=== PATIENT | male | born 1990 | race Caucasian/White ===

== ENCOUNTER 2016-11-30 20:15 | Emergency (ER) | payer BC ==
[~2016-11-30] VITALS: Ht 182.9 cm; Wt 77.3 kg
[2016-11-30] MEDS ORDERED: TOUJEO SOL300 UNIT/1 SC (21:19)
[2016-11-30] MEDS ORDERED: NOVOLOG PE100 UNITS/ SC (21:19)
[2016-11-30] MEDS ORDERED: ULTRAM50 MG PO (21:20)
[2016-11-30 22:24] VITALS: BP 112/64
== END 2016-11-30 22:24 | disposition home or self-care (01) ==
LOC: EME 20:15
DX: E10.40 Type 1 diabetes mellitus with diabetic neuropathy, unspecified (principal); Z91.048 Other nonmedicinal substance allergy status; J45.909 Unspecified asthma, uncomplicated
CPT/HCPCS: 99281; 99284

== ENCOUNTER 2017-04-25 19:49 | Emergency (ER) | payer BC ==
[~2017-04-25] VITALS: Ht 182.9 cm; Wt 77.8 kg
[~2017-04-25 19:49] MED LIST: NOVOLOG PE100 UNITS/ SC; TOUJEO SOL300 UNIT/1 SC; ULTRAM50 MG PO
[2017-04-25 20:53] LABS: HEMATOCRIT 41.2 % (38.0-50.0); MCH 29.8 PG (29.0-34.0); MCHC 36.4 G/DL (30.0-36.0); MCV 81.9 FL (86-99); MEAN PLAT.VOLUME 9.6 uM^3 (9.0-12.4); PLATELET COUNT 335 K/uL (156-360); RBC DIS.WIDTH-CV 11.9 % (11.8-14.6); RBC DIS.WIDTH-SD 35.5 % (39-53); RED BLOOD COUNT 5.03 M/uL (4.00-5.50); WHITE BLOOD COUNT 6.2 K/uL (4.1-10.2)
[2017-04-25 21:02] LABS: CHLORIDE 103 mEq/L (99-109); POTASSIUM 3.8 mEq/L (3.7-5.4); SODIUM 135 mEq/L (136-147)
[2017-04-25 21:06] LABS: TOTAL BILIRUBIN 0.3 mg/dL (0.0-1.0)
[2017-04-25 21:08] LABS: ALKALINE PHOSPHATASE 82 IU/L (3-129); GFR ESTIMATE (CALCULATED) > 59 mL/min/
[2017-04-25 21:09] LABS: UREA NITROGEN (BUN) 14 mg/dL (9-23)
[2017-04-25 21:16] LABS: GLUCOSE 578 mg/dL (70-99)
[2017-04-25 23:25] LABS: POINT-OF-CARE METER ID UU13113800
[2017-04-25 23:26] VITALS: BP 136/75
[2017-04-25] MEDS ORDERED: CYMBALTA60 MG PO (23:31)
[2017-04-26 08:55] LABS: POINT-OF-CARE METER ID UU14100415
[2017-04-26 08:55] LABS: POINT-OF-CARE METER ID UU13113778
== END 2017-04-25 23:28 | disposition home or self-care (01) ==
LOC: EME 19:49
PROVIDERS: Physician Assistant
DX: E11.65 Type 2 diabetes mellitus with hyperglycemia (principal); T43.211A Poisoning by selective serotonin and norepinephrine reuptake inhibitors, accidental (unintentional), initial encounter; Z79.4 Long term (current) use of insulin
CPT/HCPCS: 80053; 82010; 82800; 82948; 85027; 93005; 99281; 99284; J2405; J7030; S0028

== ENCOUNTER 2017-06-15 21:55 | Emergency (ER) | payer OTHER, BC ==
[~2017-06-15] VITALS: Ht 182.9 cm; Wt 75.4 kg
[~2017-06-15 21:55] MED LIST changes: +CYMBALTA60 MG PO
[2017-06-15 23:46] LABS: ADD MIUA? NO; BILIRUBIN NEGATIVE; BLOOD NEGATIVE; COLOR STRAW ((YELLOW)); GLUCOSE (STRIP) >=500; KETONES 5; LEUKOCYTES NEGATIVE; NITRITE NEGATIVE; PROTEIN (STRIP) NEGATIVE; UROBILINOGEN 0.2 MG/DL (0.2-1.0)
[2017-06-15 23:57] LABS: AMPHETAMINE NEGATIVE (500 ng/mL); BARBITURATES NEGATIVE (200 ng/mL); BENZODIAZEPINES PRESUMPTIVE POSITIVE (150 ng/mL); COCAINE NEGATIVE (150 ng/mL); INTERNAL CONTROLS VALID? YES; METHADONE NEGATIVE (200 ng/mL); METHAMPHETAMINE NEGATIVE (500 ng/mL); OPIATES (MORPHINE) NEGATIVE (100 ng/mL); OXYCODONE NEGATIVE (100 ng/mL); PHENCYCLIDINE NEGATIVE (25 ng/mL); PROPOXYPHENE NEGATIVE (300 ng/mL); THC CANNABINOIDS NEGATIVE (50 ng/mL); TRICYCLIC ANTIDEPRESSANTS NEGATIVE (300 ng/mL)
[2017-06-15 23:58] LABS: ADD MEDTOX COMMENT Y
[2017-06-16] MEDS ORDERED: FIORICET 50-301 EACH PO (00:31)
[2017-06-16] MEDS ORDERED: MOTRIN800 MG PO (00:31)
[2017-06-16 00:56] VITALS: BP 120/80
[2017-06-16 01:37] LABS: BENZODIAZEPINES QUANT VALUE 0 NG/ML; BENZODIAZEPINES, URINE SCREEN Negative (200 ng/mL)
== END 2017-06-16 01:01 | disposition home or self-care (01) ==
LOC: EME 21:55
PROVIDERS: Physician Assistant
DX: S06.0X9A Concussion with loss of consciousness of unspecified duration, initial encounter (principal); V49.40XA Driver injured in collision with unspecified motor vehicles in traffic accident, initial encounter; S16.1XXA Strain of muscle, fascia and tendon at neck level, initial encounter; E86.0 Dehydration; E10.9 Type 1 diabetes mellitus without complications; Z79.4 Long term (current) use of insulin
CPT/HCPCS: 70450; 72040; 81003; 84999; 99281; 99284